=== PATIENT | male | born 1980 | race Caucasian/White ===

== ENCOUNTER → 2020-05-04 | Outpatient (CLI) | payer OTHER ==
--- NOTE | 2020-05-04 12:26 | RAD ---
STUDY: MRI of the left knee without contrast INDICATION: Medial knee pain. COMPARISON: Left knee radiographs 02/13/2020 TECHNIQUE: Multiplanar MR imaging of the left knee performed without the use of intravenous or intra-articular contrast. FINDINGS: Menisci: Free edge tear of the mid medial meniscal body. Undersurface oblique tear of the medial meniscus from the mid meniscal body through the posterior horn and to the posterior horn/root junction. Tiny parameniscal cyst adjacent to the posterior horn, image 24 series 6. The lateral meniscus is intact. Cruciate ligaments: Intact. Collateral ligaments: No acute injury of the medial or lateral collateral ligaments. Tendons: Intact extensor mechanism. The additional tendons at the knee are intact. Cartilage: Patellofemoral: Patellar chondrosis mainly at the median ridge and across the lateral facet with some areas of fissuring and possible delamination. Chondral fissure along the lateral margin of the trochlear groove, image 13 series 4. Lateral compartment: Intact. Medial compartment: No full-thickness defect but there does appear to be chondral thinning in the region of the meniscal tear. Bones: No acute osseous abnormality. No locally aggressive marrow signal. Miscellaneous: Small amount of knee joint fluid. Nonspecific subcutaneous edema superficial to the patellar tendon as well as along the lateral aspect of the knee. Some of this edema does overlie the IT band but is not typical of IT band syndrome. No confluent fluid signal to suggest prepatellar bursitis. IMPRESSION: 1. Free edge tearing of the medial meniscus at the mid body. There is also undersurface oblique tearing of the medial meniscus from the mid body through the posterior horn/root junction. Tiny associated parameniscal cysts along the posterior margin of the posterior horn, image 24 series 6. Intact lateral meniscus. Intact cruciate ligaments. 2. No acute collateral ligamentous injury. Findings by radiography suggestive of prior MCL injury is not well appreciated on this study. 3. Patellofemoral compartment chondrosis involving the patella median ridge and lateral facet more so than the trochlea, as detailed above. Probable chondral thinning without a full-thickness defect overlying the medial meniscus tear. Electronically signed by: PEGGY DOWNING MD (05/04/2020 12:23 PM) [id number]
== END | disposition home or self-care (01) ==
LOC: MRI 10:08
PROVIDERS: ATTEND Physician Assistant
DX: S83.242A Other tear of medial meniscus, current injury, left knee, initial encounter (principal); M25.862 Other specified joint disorders, left knee; X58.XXXA Exposure to other specified factors, initial encounter; Y93.89 Activity, other specified; Y92.89 Other specified places as the place of occurrence of the external cause; Y99.8 Other external cause status
CPT/HCPCS: 73721

== ENCOUNTER → 2020-06-29 | Outpatient (CLI) | payer OTHER ==
[~2020-06-29] MED LIST: AMLO5TAB10 PO; DOCU-109 PO; HYDR-3164 PO; IBUP-1027 PO; ONDA8TAB9 PO; TELM40TA PO
== END | disposition home or self-care (01) ==
LOC: LAB 13:36
PROVIDERS: ATTEND Orthopaedic Surgery Sports Medicine
DX: Z11.59 Encounter for screening for other viral diseases (principal)
CPT/HCPCS: U0003-CS

== ENCOUNTER 2020-07-04 06:08 | Day surgery (SDC) | payer OTHER ==
[~2020-07-04 06:08] MED LIST changes: -DOCU-109 PO; -HYDR-3164 PO; -ONDA8TAB9 PO
[2020-07-04] MEDS ORDERED: LIDOCAINE 2% PF 5 ML VIAL. ONE (06:43)
[2020-07-04] MEDS ORDERED: ONDANSETRON PF 4 MG/2 ML VIAL. ONE (06:43)
[2020-07-04] MEDS ORDERED: PROPOFOL 10 MG/ML (20ML) VIAL. IV ONE (06:43)
[2020-07-04] MEDS ORDERED: DEXAMETHASONE SOD PHOS 4 MG/ML VIAL ONE (06:43)
[2020-07-04] MEDS ORDERED: fentaNYL PF VIAL 250 MCG/5 ML VIAL ONE (06:44)
[2020-07-04] MEDS ORDERED: MIDAZOLAM HCL/PF 2 MG/2 ML VIAL. ONE (06:44)
[2020-07-04] MEDS ORDERED: LIDOCAINE 1% Multi-Dose 20 ML VIAL. ONE (07:00)
[2020-07-04] MEDS ORDERED: ONDANSETRON PF 4 MG/2 ML VIAL. IV PRN (07:00)
[2020-07-04] MEDS ORDERED: MORPHINE SULFATE 2 MG/ML VIAL. IV PRN (07:00)
[2020-07-04] MEDS ORDERED: HYDROmorphone 2 MG/ML VIAL IV PRN (07:00)
[2020-07-04] MEDS ORDERED: IV RINGERS,LACTATED 1000ML 1,000 ML IV SCH ×2 (07:00)
[2020-07-04] MEDS ORDERED: ceFAZolin SODIUM 3 GM in IV DEXTROSE 5% 100ML 100 ML IV ONE (07:00)
[2020-07-04] MEDS ORDERED: PROCHLORPERAZINE 10 MG/2 ML VIAL. IV PRN (07:00)
[2020-07-04] MEDS ORDERED: fentaNYL PF VIAL 100 MCG/2 ML VIAL IV PRN ×2 (07:00)
[2020-07-04] MEDS ORDERED: EPINEPHrine VIAL 30 MG/30 ML VIAL ONE (07:00)
[2020-07-04] MEDS ORDERED: BUPIVACAINE MPF 0.5% 30 ML VIAL. ONE (07:01)
[2020-07-04] MEDS ORDERED: SUCCINYLCHOLINE 200 MG/10 ML VIAL. ONE (07:34)
--- NOTE | 2020-07-04 07:37 | DISCH ---
DISCHARGE INSTRUCTIONS Condition on Discharge Condition on Discharge: Stable Activity After Discharge Activity Instructions for Disc: Activity as tolerated Bathing Instructions: Shower-keep dressing dry Weight Bearing Status after Di: As tolerated Diet after Discharge Diet after Discharge: Regular Wound Incision Care Wound/Incision Care: Ice to area for comfort, Keep wound/cast CDI, Change dressing Contacting the DRPepe after DC Call your doctor for: Concerns you may have Follow-Up Follow up with: Toribio in 2 wks HILARY BONNER II, MD Jul 04, 2020 07:36
[2020-07-04] MEDS ORDERED: SEVOFLURANE 31 TO 60 MINUTES. IH ONE (08:09)
--- NOTE | 2020-07-04 08:31 | PDOC4 ---
Operative Note Operative Note Date of procedure: 07/04/2020 Surgeon: Julio Bonner Program Coordinator Executive Education: Neptali Brasher Preoperative diagnosis: Left knee medial meniscus tear Postoperative diagnosis: Same Procedure performed: Arthroscopic left knee partial medial meniscectomy Anesthesia: General Blood loss: 5 mL Tourniquet time: Less than 30 minutes Findings: #1 patient had grade 2-3 changes at his patella 2. Multiple small loose bodies, approximately 5-10 in the gutters of the knee 3. Complex medial meniscus tear with an oblique flap 4. Unremarkable medial and lateral compartment cartilage 5. Intact cruciate ligaments 6. Unremarkable lateral meniscus Complications: None Reason for procedure: Patient is a very pleasant 40-year-old gentleman who has had pain limiting his activities daily living and ability to work for quite some time. He was seen in my outpatient clinic and where I reviewed imaging and performed a physical examination. He had tried and failed conservative therapies and because of this we had a discussion of the risks, benefits, and alternatives to the above surgery and he wished to proceed. Description of procedure: Patient was greeted in the preoperative area by myself or the correct extremity was verified and marked. He was taken to the operative suite and antibiotics were started as he was brought back. Once in the operating, he was transferred gently supine to the operating table and secured to the bed with all pressure points padded. He then underwent successful induction of a general anesthetic. Nonsterile tourniquet was taped in place to his left upper thigh after I perform my examination under anesthesia which demonstrated range of motion 0 to 130 degrees, limited by posterior soft tissues, knee was stable to varus valgus, negative Lockman, negative dial. We then proceeded prep and drape left lower extremity in her usual sterile fashion and conducted our standard preoperative timeout. I then palpated marked for surface anatomy for my standard anterolateral and anteromedial arthroscopic portals. I incised skin with a scalpel after exsanguinating extremity and insufflated tourniquet to 300 mmHg. I first created my anterolateral portal and introduced the blunt arthroscopic trocar into the suprapatellar pouch. I then began my diagnostic arthroscopy and upon entering the medial compartment used a spinal to localize a and anteromedial portal. I incised skin accordance with this and dilated this hole. I then noted the medial meniscus tear and using combination of shaver and arthroscopic biters trim the meniscus tear back to stable edges. After this I continued on with my diagnostic arthroscopy. Once completed with this I spent time performing repeated aspiration maneuvers throughout the knee through the shaver to remove all the loose debris. I then finished by performing repeated aspiration maneuvers with vigorous palpation in the popliteal fossa by my funeral director's assistant while the instruments were in the suprapatellar pouch. After this, remove all excess arthroscopic fluid and instrumentation and proceeded to close the portals with 3-0 Monocryl in an inverted interrupted fashion. Local anesthetic was injected in the manuel-portal skin. A sterile soft bulky dressing was then applied followed by an Wei wrap. Tourniquet was let down. After this, the patient was awake from anesthesia and transferred gently supine to the recovery room cart and taken to PACU in stable and extubated condition. Postoperative plan is to allow weightbearing as tolerated. He will be discharged home. I will see him back in 2 weeks, sooner should a problem arise JULIO BONNER II, MD Jul 04, 2020 08:31
[2020-07-04] MEDS ORDERED: HYDR-3164 PO (08:42)
[2020-07-04] MEDS ORDERED: DOCU-109 PO (08:42)
[2020-07-04] MEDS ORDERED: ONDA8TAB9 PO (08:43)
[2020-07-04] MEDS ORDERED: HYDROcodone/APAP 5/325MG 1 TAB TABLET PO ONE ×2 (09:00)
[2020-07-04 09:05] VITALS: BP 141/80
== END 2020-07-04 09:49 | disposition home or self-care (01) ==
LOC: SURG 06:08
PROVIDERS: ATTEND Orthopaedic Surgery Sports Medicine
DX: S83.232A Complex tear of medial meniscus, current injury, left knee, initial encounter (principal); X58.XXXA Exposure to other specified factors, initial encounter; Y93.89 Activity, other specified; Y92.89 Other specified places as the place of occurrence of the external cause; Y99.8 Other external cause status; Z88.8 Allergy status to other drugs, medicaments and biological substances; Z79.899 Other long term (current) drug therapy
CPT/HCPCS: 29881; A7015; J0171; J0330; J0690; J1100; J2250; J2405; J2704; J3010; J3490; J7060